=== PATIENT | male | born 1950 | race Caucasian/White ===

== ENCOUNTER → 2023-12-09 06:27 | Day surgery (SDC) | payer OTHER, SELFPAY | LOC: GI 06:27 | PROVIDERS: ATTENDING PHYSICIAN Internal Medicine Gastroenterology | DX: Z12.11 Encounter for screening for malignant neoplasm of colon (principal); K63.89 Other specified diseases of intestine; D17.5 Benign lipomatous neoplasm of intra-abdominal organs; Z86.010 Personal history of colon polyps; Z98.890 Other specified postprocedural states | CPT/HCPCS: 45380; 88305 ==

== ENCOUNTER 2025-01-18 17:06 | Emergency (ER) | payer OTHER, SELFPAY ==
[2025-01-18 17:07] VITALS: BP 143/74
--- NOTE | 2025-01-18 18:43 | ED.GENMED ---
History of Present Illness
General
Chief Complaint: Skin Problem
Source: patient
Time Seen by Provider: 01/18/25 18:09
History of Present Illness
History of Present Illness:
Very pleasant 74-year-old male presents emergency department accompanied by his daughter after suffering an injury to the third digit on the right hand. He was using hedge trimmers while on a ladder, and while switching hands he accidentally
suffered a lac. Td is UTD. No numb/ting. No other complaints.
Past History
Past History
ED Past Medical History: HTN
Social History
Alcohol: None
Drug: None
Personal:
Living: with family
Phy Exam
Physical Exam
Physical Exam:
GENERAL: Alert , in no apparent distress
NECK: Supple
ENT: o/p clr, mmm.
CARDIAC: Regular rate and rhythm .
LUNGS: Clear breath sounds bilaterally, no acute respiratory distress, no wheezes/rales/rhonchi
NEUROLOGICAL: Alert and oriented, grossly nonfocal
SKIN: Warm and dry, 3 cm laceratino to level of st 3rd digit R hand volar aspect distal finger tip exxtending volar aspect and through lateral aspect nail. (which is still intact). FROM, strength intact, sens intact.
MUSCULOSKELETAL: No edema, well perfused.
PSYCH: Normal and appropriate interaction.
Course
Orders/Labs/Results
Orders:
Orders
01/18/25 18:41
Finger(s)/Thumb 2 View Rt [CR Finger(s)/thumb Min 2 Vw Rt] Urgent
Comment:
Reason For Exam: 3rd (middle) finger injury
Vital Signs
Initial and Last Documented VS:
Initial Vital Signs
Temp Pulse Resp BP Pulse Ox
98.2 F 72 16 143/74 97
01/18/25 17:07 01/18/25 17:07 01/18/25 17:07 01/18/25 17:07 01/18/25 17:07
Last Documented Vital Signs
Temp Pulse Resp BP Pulse Ox
98.2 F 72 16 143/74 97
01/18/25 17:07 01/18/25 17:07 01/18/25 17:07 01/18/25 17:07 01/18/25 18:45
Procedures
Laceration Closure
Right Finger:
Status of Wound: clean
Size of Wound in cm: 3
Description of Wound Edges: sharp
Preparation: cleaned with saline
Anesthesia: Digital-Regional
Revision/Debridement: routine- no revision
Wound exploration: explored to base- no FB
Type of Closure: single layer closure
Skin Closure Material: 4-0 nylon
Number of sutures: 6
*Pulse Oximetry
SaO2: 97
Oxygen Mode of Delivery: Room air
Update Note
Update Note:
Patient presents to the Emergency Department with finger laceration____
Number and Complexity of Problems Addressed at the Encounter
� Chronic conditions affecting care:
� Acute Exacerbation and/or Progression of Chronic Illness:
� Differential Diagnosis includes: But not limited to laceration, fracture, tendon injury, etc. etc.
Amount and/or Complexity of Data to be Reviewed and Analyzed
� I performed an independent evaluation of and my interpretation is:
EKG:
CT:
Xrays:nad finger
Laboratory Studies:
Other:
� Review of other/old records reveals:
� Clinical information was obtained by an independent historian:
� Prescriptions/Medications Considered but not given:
� Further testing considered but not performed:
Risk of Complications and/or Morbidity or Mortality of Patient Management
� Social determinants of health affecting care:
� Discussion with other providers (PCP, Hospitalists, Consultants, etc):
� Escalation of care including admission/observation vs risk of discharge considered: Wound was repaired after careful inspection status post digital block and cleansing. Discussed with patient portance of follow-up and reasons
return to the ER. No fracture noted. No abnormalities of tendon function, no joint involvement.
ED Attending Note
-
Portions of this chart may have been created with voice recognition software.� Occasional wrong word or��sound alike� substitutions may have occurred due to the inherent limitations of voice recognition software.
Discharge Plan
Departure
Patient Disposition: Home (Routine Discharge)
Date of Disposition: 01/18/25
Time of Disposition: 18:52
Patient with high blood pressure during this ER visit?: Yes
Condition: Good
Discharge Problem:
Laceration
Instructions: [facility] - ED discharge instructions, BLOOD PRESSURE, Laceration
Prescriptions:
No Action
pantoprazole 40 MG tablet,delayed release (DR/EC)
40 mg PO DAILY
FINASTERIDE
5 mg PO DAILY
mupirocin 1 APPLIC ointment
1 applic intranasal BID Qty: 1 0RF
finasteride 5 MG tablet
5 mg PO DAILY
mupirocin 1 GRAM ointment
1 applic intranasal BID
sennosides [senna] 1 TABLET tablet
2 tab PO BID 0RF
acetaminophen 325 MG tablet
650 mg PO QID 0RF
magnesium hydroxide 30 ML suspension
30 ml PO DAILYPRN PRN (Reason: constipation) 0RF
aspirin 325 MG tablet,delayed release (DR/EC)
325 mg PO DAILY 0RF
docusate sodium 100 MG capsule
100 mg PO BID 0RF
oxycodone 5 MG tablet
5 mg PO Q4HPRN PRN (Reason: moderate-severe pain) Qty: 35 0RF
Rx Instructions:
1 tabg moderate pain or 2 if pain severe
dx tka
ongoing
lisinopril 10 MG tablet
10 mg PO DAILY Qty: 0 0RF
Rx Instructions:
hold systolic blood pressure <130
ibuprofen 200 MG tablet
400 mg PO BID Qty: 0 0RF
Rx Instructions:
*TAKE WITH FOOD
*DO NOT TAKE WITHIN 2 HOURS OF ASPIRIN
hydrochlorothiazide 25 MG tablet
25 mg PO DAILY Qty: 0 0RF
Rx Instructions:
hold systolic blood pressure <130
Referrals:
Ann Bowles NP [Family Provider, Internal Medicine] - Follow up in 10 days
Activity Restrictions/Additional Instructions:
YOU HAD SIX SUTURES PLACED. PLEASE MONITOR FOR SIGNS OF INFECTION SUCH REDNESS/WARMTH, DRAINAGE, FEVER, PERSISTENT/INCREASING PAIN, SWELLING OR OTHER WORRISOME SIGNS. IF THIS DEVELOPS,PLEASE SEE YOUR DOCTOR OR GO TO THE ER IMMEDIATELY! YOUR
SUTURES NEED TO BE REMOVED IN 10 DAYS.
Interventions
Interventions:
*Risk Screen - Suicide Last Done: 01/18/25 17:07
*Neglect/Abuse Screening Last Done: 01/18/25 17:07
Discharge Date and Time
Print Language: LITHUANIAN
[2025-01-18 19:27] VITALS: BP 123/73
== END 2025-01-18 19:41 | disposition home or self-care (01) ==
LOC: EMR 17:06
PROVIDERS: EMERGENCY PHYSICIAN Emergency Medicine; FAMILY PHYSICIAN Internal Medicine
DX: S69.91XA Unspecified injury of right wrist, hand and finger(s), initial encounter (principal); X58.XXXA Exposure to other specified factors, initial encounter
CPT/HCPCS: 99283; 73140; 90715